=== PATIENT | female | born 1975 | race Two or more races ===

== ENCOUNTER 2016-08-10 08:29 | Emergency (ER) | payer OTHER ==
[2016-08-10 08:37] VITALS: TEMP 98.2; BMI 28.3
[2016-08-10] MEDS ORDERED: MAG HYDROX/AL HYDROX/SIMETH 30 ML UNIT-DOSE CUP PO ONE (09:20)
[2016-08-10] MEDS ORDERED: FAMOTIDINE 20 MG/50 ML IVPB 50 ML IVPB ONE ×2 (09:20→09:26)
[2016-08-10] MEDS ORDERED: ONDANSETRON 4 MG/2 ML VIAL IVPUSH ONE (09:20)
[2016-08-10] MEDS ORDERED: PANTOPRAZOLE SODIUM 40 MG in SODIUM CHLORIDE 100 ML IVPB ONE (09:20)
[2016-08-10] MEDS ORDERED: SUCRALFATE 1 GM/10 ML UNIT DOSE CUPS PO ONE (09:22)
[2016-08-10] MEDS ORDERED: SUCRALFATE 1 GM TABLET (FP) ONE (09:25)
[2016-08-10] MEDS ORDERED: ONDANSETRON 4 MG/2 ML VIAL ONE (09:26)
[2016-08-10] MEDS ORDERED: MAG HYDROX/AL HYDROX/SIMETH 30 ML UNIT-DOSE CUP ONE (09:26)
[2016-08-10] MEDS ORDERED: PANTOPRAZOLE SODIUM 100 ML IVPB ONE (09:26)
--- NOTE | 2016-08-10 09:31 | PDOC ---
History of Present Illness - General Chief Complaint: Pain Stated Complaint: ABD PAIN Time Seen by Provider: 08/10/16 08:45 History Source: Patient Exam Limitations: No Limitations - History of Present Illness Initial Comments: 41 y/o w/no sig PMH presents to ER with c/o of abdominal pain and nausea and vomiting. Abdominal pain is in epigastric region and started yesterday. This morning pain was worsened and was rated as a 10/10 with no radiation. Pain is worsened with food and alleviated with prevacid. Pt has also felt nauseous for the last 5 days but only had 1 episode of emesis yesterday night and 1 episode this morning, both episodes non-bloody and mainly consisting of food. She states that she ate out at a restaurant 5 days ago and has been feeling the nausea since then. She also c/o subjective fevers that started 5 days ago and chills beginning yesterday and occasional headaches over the last 5 days. She has gastritis in the past and felt similar symptoms. She denies any recent travel, sick contacts, chest pain, sob, diarrhea, constipation, blood in stool, dysuria, peripheral swelling. PCP: Marylu Casas Past History - Past Medical History Allergies/Adverse Reactions: Allergies Allergy/AdvReac Type Severity Reaction Status Date / Time No Known Allergies Allergy Verified 08/10/16 08:38 Home Medications: Ambulatory Orders Famotidine [Pepcid] 20 mg PO BID #28 tablet 08/10/16 Omeprazole 20 mg PO DAILY #14 capsule. 08/10/16 Asthma: No Cancer: No Cardiac Disorders: No Diabetes: No HTN: No Seizures: No Thyroid Disease: No - Psycho/Social/Smoking Cessation Hx Suicidal Ideation: No Smoking History: Never smoked Have you smoked in the past 12 months: No Information on smoking cessation initiated: No Hx Alcohol Use: No Drug/Substance Use Hx: No Substance Use Type: Alcohol Hx Substance Use Treatment: No Review of Systems - Review of Systems Able to Perform ROS?: Yes Comments:: GENERAL/CONSTITUTIONAL:+fever and chills. No weakness. HEAD, EYES, EARS, NOSE AND THROAT: No change in vision. No sore throat. CARDIOVASCULAR: No chest pain RESPIRATORY: No cough, wheezing, SOB, or hemoptysis. GASTROINTESTINAL: +nausea, vomiting, epigastric abd pain. No diarrhea or constipation or blood in stool. GENITOURINARY: No dysuria NEUROLOGIC: +headache. No vertigo, loss of consciousness, or change in strength/ sensation. *Physical Exam - Vital Signs Last Vital Signs Temp Pulse Resp BP Pulse Ox 98.2 F 66 18 124/90 99 08/10/16 08:34 08/10/16 08:34 08/10/16 08:34 08/10/16 08:34 08/10/16 08:34 - Physical Exam Comments: GENERAL: Awake, alert, and fully oriented, in no acute distress HEAD: No signs of trauma EYES: EOMI, sclera anicteric, conjunctiva clear ENT: Auricles normal inspection, hearing grossly normal, nares patent. Moist mucosa NECK: Normal ROM, supple LUNGS: Breath sounds equal, clear to auscultation bilaterally. No wheezes, and no crackles HEART: Bradycardic, normal S1 and S2, no murmurs, rubs or gallops ABDOMEN: Soft, RUQ and epigastric tenderness. No guarding, no rebound. No masses. Negative wilson's sign. EXTREMITIES: Normal range of motion, no edema. No cords, erythema, or tenderness NEUROLOGICAL: Cranial nerves II through XII grossly intact. Normal speech, normal gait SKIN: Warm, Dry, normal turgor, no rashes or lesions noted. Heart Score/ECG Review - ECG Intrepretation Comment:: Sinus bradycardia @ 50 bpm QTc [address] segment changes noted. No previous EKGs to compare. ED Treatment Course - LABORATORY CBC & Chemistry Diagram: 08/10/16 09:40 08/10/16 09:40 Medical Decision Making - Medical Decision Making 08/10/16 09:16 Pt likely to have gastritis but will r/o choledocholithiasis, pancreatitis, . Ordered CBCD, CMP, UA, urine , lipase, EKG Ordered zofran 4 mg IV, Carafate 1 g, Pepcid 20 mg IV, Protonix 40 mg IV, mylanta. 08/10/16 10:32 Pt feels much better at this time. Has no complaints currently. Clinical impression at this time is gastritis. Will discharge home to f/u with PCP and to f/u with Dr. Ruiz for GI follow up. Will also send home with pepcid PRN and protonix daily. 08/10/16 11:39 Received call from pharmacy and pantoprazole is not covered but omperazole is. Pt prescribed omeprazole in place of pantoprazole. *DC/Admit/Observation/Transfer Diagnosis at time of Disposition: Gastritis - Discharge Dispostion Disposition: HOME Condition at time of disposition: Good - Prescriptions Prescriptions: Omeprazole 20 mg PO DAILY #14 capsule. Famotidine [Pepcid] 20 mg PO BID #28 tablet - Referrals Referrals: Marylu Casas NP [Primary Care Provider] - Brad Ruiz MD [Staff Physician] - - Patient Instructions Printed Discharge Instructions: DI for Gastritis Additional Instructions: You will need to follow up with your primary care provider, Marylu Casas. You will also need to see a GI doctor. You can see Dr. Ruiz who can further manage your abdominal symptoms. You have also been prescribed pepcid to take as needed for abdominal pain. You have also been prescribed protonix (pantoprazole) to take daily. Please let Dr. Ruiz and your primary care provider know about these medications. If your symptoms worsen, come back to the emergency room.
--- NOTE | 2016-08-10 09:48 | PDOC ---
Attending Attestation - Resident Resident Name: Antonio Dixon - ED Attending Attestation I have performed the following: I have examined & evaluated the patient, The case was reviewed & discussed with the resident, I agree w/resident's findings & plan, Exceptions are as noted - HPI HPI: 08/10/16 09:46 41-year-old female patient with history of gastritis presents with epigastric pain for last several days. Patient reports that she's been feeling nauseous and with pressure epigastric pain with one episode of vomiting yesterday one episode of vomiting today. She states that this is exactly like her gastritis. She does not have any complaints of right upper quadrant pain. She has taken Prevacid - Physicial Exam PE: 08/10/16 09:47 GENERAL: Awake, alert, and fully oriented, in no acute distress. HEAD: No signs of trauma EYES: PERRLA, EOMI, sclera anicteric, conjunctiva clear ENT: Auricles normal inspection, hearing grossly normal, nares patent, oropharynx clear without exudates. NECK: Normal ROM, supple, no lymphadenopathy, JVD, or masses LUNGS: Breath sounds equal, clear to auscultation bilaterally. No wheezes, and no crackles HEART: Regular rate and rhythm, normal S1 and S2, no murmurs, rubs or gallops ABDOMEN: TTP epigastric. negative wilson. no rebound, no guarding. EXTREMITIES: Normal range of motion, no edema. No clubbing or cyanosis. No cords, erythema, or tenderness NEUROLOGICAL: Cranial nerves II through XII grossly intact. Normal speech, normal gait SKIN: Warm, Dry, normal turgor, no rashes or lesions noted. - Medical Decision Making 08/10/16 09:47 Assessment and plan: I suspect patient likely has gastritis. No right upper quadrant pain. I've no concerns for acute Digna or biliary colic at this time. We'll obtain abdominal labs and treat for gastritis and reassess. If the patient's symptoms improved and workup is unremarkable, patient can be discharged with outpatient follow-up. Heart Score/ECG Review #1 ECG reviewed & interpreted by me at: 09:20 08/10/16 09:48 NSR 50, T wave flat III, no std/rock, normal axis, normal intervals, QTC 375 msec
[2016-08-10 09:51] LABS: URINE APPEARANCE CLEAR; URINE BILIRUBIN NEGATIVE (NEGATIVE); URINE BLOOD NEGATIVE (NEGATIVE); URINE COLOR LTYELLOW; URINE GLUCOSE (UA) NEGATIVE (NEGATIVE); URINE KETONE NEGATIVE (NEGATIVE); URINE LEUK ESTERASE NEGATIVE (NEGATIVE); URINE NITRITE NEGATIVE (NEGATIVE); URINE PROTEIN NEGATIVE (NEGATIVE); URINE UROBILINOGEN NEGATIVE E.U./dl (0.2-1.0)
[2016-08-10 10:05] LABS: EOSINOPHIL 5.3 % (0-4.5); MCH 29.6 pg (25.7-33.7); MCHC 33.3 g/dl (32.0-36.0); MEAN CELL VOLUME 88.8 fl (80-96); MEAN PLT VOLUME 9.7 fl (7.5-11.1); NEUTROPHILS 39.7 % (42.8-82.8); PLATELET COUNT 190 K/MM3 (134-434); RDW 13.6 % (11.6-15.6); WHITE BLOOD COUNT 4.8 K/mm3 (4.0-10.0)
[2016-08-10 10:22] LABS: ALBUMIN 3.8 g/dl (3.4-5.0); ALK PHOS 49 U/L (45-117); ANION GAP 7 (8-16); BILIRUBIN,TOTAL 0.3 mg/dL (0.2-1.0); CALCIUM 8.7 mg/dL (8.5-10.1); CO2 25 mmol/L (21-32); CREATININE 0.6 mg/dL (0.55-1.02); GLUCOSE,RANDOM 90 mg/dL (74-106); SGOT/AST 13 U/L (15-37); SGPT/ALT 22 U/L (12-78); TOT PROT 6.9 g/dl (6.4-8.2)
[2016-08-10 11:02] VITALS: BP 129/80; PULSE 82
--- NOTE | 2016-08-10 13:06 | EKG ---
Test Reason : Blood Pressure : / mmHG Vent. Rate : 050 BPM Atrial Rate : 050 BPM P-R Int : 156 ms QRS Dur : 088 ms QT Int : 412 ms P-R-T Axes : 021 019 020 degrees QTc Int : 375 ms SINUS BRADYCARDIA OTHERWISE NORMAL ECG NO PREVIOUS ECGS AVAILABLE Confirmed by ADARSH PAGAN MD ([id number]) on 08/10/2016 1:05:39 PM Referred By: Confirmed By:ADARSH PAGAN MD
== END 2016-08-10 11:02 | disposition home or self-care (01) ==
LOC: JER 08:29
PROC: 3E033GC Introduction of Other Therapeutic Substance into Peripheral Vein, Percutaneous Approach (ICD-10-PCS; principal; 2016-08-10)
DX: K52.9 Noninfective gastroenteritis and colitis, unspecified (principal)
CPT/HCPCS: 36415; 80053; 81003; 83690; 84703; 85025; 93005; 93010; 99282-25

== ENCOUNTER 2020-08-30 15:00 | Inpatient (IN) | payer OTHER ==
[2020-08-30 17:14] LABS: EPI CELLS >36 /uL (0-25.1); HYALINE CASTS 11 /uL (0-3.1); URINE APPEARANCE CLOUDY; URINE BACTERIA 3838 /uL (0-1359); URINE BILIRUBIN NEGATIVE (NEGATIVE); URINE COLOR YELLOW; URINE GLUCOSE (UA) NEGATIVE (NEGATIVE); URINE KETONE NEGATIVE (NEGATIVE); URINE LEUK ESTERASE TRACE (NEGATIVE); URINE NITRITE NEGATIVE (NEGATIVE); URINE PROTEIN TRACE (NEGATIVE); URINE RBC 20 /uL (0-23.9); URINE WBC 91 /uL (0-25.8)
[2020-08-30 17:25] LABS: BASO % 0.4 % (0-2.0); EOS % 1.3 % (0-4.5); HEMATOCRIT 30.5 % (32.4-45.2); HEMOGLOBIN 10.2 GM/dL (10.7-15.3); LYMPH % 31.8 % (8-40); MCH 30.5 pg (25.7-33.7); MCHC 33.4 g/dl (32.0-36.0); MEAN CELL VOLUME 91.2 fl (80-96); MEAN PLT VOLUME 9.8 fl (7.5-11.1); MONO % 8.3 % (3.8-10.2); NEUT % 58.2 % (42.8-82.8); PLATELET COUNT 163 10^3/uL (134-434); RBC 3.34 M/mm3 (3.60-5.2); WHITE BLOOD COUNT 5.8 K/mm3 (4.0-10.0)
[2020-08-30 17:46] LABS: CALCIUM 9.2 mg/dL (8.5-10.1)
[2020-08-30 17:47] LABS: ALBUMIN 2.8 g/dl (3.4-5.0); BLOOD UREA NITROGEN 6.2 mg/dL (7-18)
[2020-08-30 17:50] LABS: CREATININE 0.3 mg/dL (0.55-1.3)
[2020-08-30 17:51] LABS: BILIRUBIN,TOTAL 0.4 mg/dL (0.2-1); TOT PROT 5.9 g/dl (6.4-8.2)
[2020-08-30] MEDS ORDERED: CITRIC ACID/SODIUM CITRATE 30 ML UNIT-DOSE CUP PO ONE (18:38)
[2020-08-30] MEDS ORDERED: ELECTROLYTE-148 SOLN 500 ML IV ONE (18:38)
[2020-08-30 19:02] VITALS: BMI 31.4
[2020-08-30 19:32] LABS: INR 0.92 (0.83-1.09); PROTHROMBIN TIME (PATIENT) 11.2 SEC (9.7-13.0)
[2020-08-30] MEDS ORDERED: morphine SULFATE/PF 0.5 MG/ML (2cc Syringe - QUVA) ONE (19:34)
[2020-08-30 19:35] LABS: ACTIVATED PTT 27.2 SECONDS (25.2-36.5)
[2020-08-30] MEDS ORDERED: SODIUM CHLORIDE 0.9% P/F 10 ML VIAL IJ ONE (19:37)
[2020-08-30] MEDS ORDERED: ONDANSETRON 4 MG/2 ML VIAL ONE (19:37)
[2020-08-30] MEDS ORDERED: OXYTOCIN 10 UNITS/ML VIAL ONE (19:37)
[2020-08-30] MEDS ORDERED: KETOROLAC TROMETHAMINE 30 MG/1 ML VIAL ONE (19:37)
[2020-08-30] MEDS ORDERED: ceFAZolin SODIUM 1 GM VIAL ONE (19:37)
[2020-08-30] MEDS ORDERED: morphine SULFATE/PF 0.5 MG/ML (2cc Syringe - QUVA) EP ONE (20:02)
[2020-08-30] MEDS ORDERED: ePHEDrine SULFATE 50 MG/1 ML AMPULE ONE (20:10)
[2020-08-30] MEDS ORDERED: ONDANSETRON 4 MG/2 ML VIAL IVPUSH PRN ×2 (21:17)
[2020-08-30] MEDS ORDERED: ACETAMINOPHEN 1000 MG/100 ML VIAL (NON FORMULARY) IVPB ONE (21:19)
[2020-08-30] MEDS: OXYTOCIN 20 UNITS in 0.9% NS 20 UNIT/1,000 ML INFUS.BAG IV SCH (21:47)
[2020-08-30] MEDS ORDERED: OXYTOCIN 20 UNITS in 0.9% NS 20 UNIT/1,000 ML INFUS.BAG IV ONE (21:57)
[2020-08-30] MEDS ORDERED: ACETAMINOPHEN INJECTION 100 ML IVPB ONE (21:57)
[2020-08-31] MEDS: IBUPROFEN 800 MG/8 ML IJ IVPB PRN ×2 (02:38→10:33)
[2020-08-31] MEDS ORDERED: ceFAZolin 2 GRAM PREMIX BAG IVPB ONE (05:00)
[2020-08-31 08:49] LABS: BASO % 0.4 % (0-2.0); EOS % 0.9 % (0-4.5); HEMATOCRIT 24.7 % (32.4-45.2); LYMPH % 16.7 % (8-40); MCH 30.2 pg (25.7-33.7); MCHC 32.6 g/dl (32.0-36.0); MEAN CELL VOLUME 92.7 fl (80-96); MEAN PLT VOLUME 10.2 fl (7.5-11.1); MONO % 7.3 % (3.8-10.2); NEUT % 74.7 % (42.8-82.8); PLATELET COUNT 146 10^3/uL (134-434); RBC 2.66 M/mm3 (3.60-5.2); RDW 14.1 % (11.6-15.6); WHITE BLOOD COUNT 6.8 K/mm3 (4.0-10.0)
[2020-08-31] MEDS: IBUPROFEN 600 MG TABLET (FP) PO PRN ×2 (15:28→23:59)
[2020-08-31] MEDS: SIMETHICONE 80 MG TAB.CHEW (FP) PO PRN ×2 (15:28→22:08)
[2020-08-31] MEDS: oxyCODONE HCL 5 MG TABLET PO PRN ×2 (15:29→19:58)
[2020-08-31] MEDS ORDERED: BISACODYL 10 MG SUPP.RECT PR ONE (17:45)
[2020-08-31] MEDS: ACETAMINOPHEN 325 MG TABLET (FP) PO PRN (19:59)
[2020-08-31] MEDS ORDERED: BISACODYL 10 MG SUPP.RECT RC PRN (20:46)
[2020-09-01] MEDS: IBUPROFEN 600 MG TABLET (FP) PO PRN ×3 (05:45→18:49)
[2020-09-01] MEDS: ACETAMINOPHEN 325 MG TABLET (FP) PO PRN ×5 (05:45→23:11)
[2020-09-01] MEDS: SIMETHICONE 80 MG TAB.CHEW (FP) PO PRN ×3 (11:59→23:08)
[2020-09-01] MEDS: LACTATED RINGERS SOLUTION 1,000 ML IV SCH ×2 (19:45→19:46)
[2020-09-01] MEDS: ELECTROLYTE-148 SOLN 1,000 ML IV SCH ×2 (19:45→19:46)
[2020-09-01] MEDS: OXYTOCIN 20 UNITS in 0.9% NS 20 UNIT/1,000 ML INFUS.BAG IV SCH (19:46)
[2020-09-01] MEDS: oxyCODONE HCL 5 MG TABLET PO PRN (23:10)
[2020-09-02] MEDS: oxyCODONE HCL 5 MG TABLET PO PRN (05:37)
[2020-09-02] MEDS: ACETAMINOPHEN 325 MG TABLET (FP) PO PRN ×4 (05:38→22:11)
[2020-09-02] MEDS: IBUPROFEN 600 MG TABLET (FP) PO PRN ×4 (05:38→22:11)
[2020-09-02] MEDS: SIMETHICONE 80 MG TAB.CHEW (FP) PO PRN ×4 (05:39→22:11)
[2020-09-02 08:52] LABS: BASO % 0.5 % (0-2.0); EOS % 3.3 % (0-4.5); LYMPH % 22.7 % (8-40); MCH 30.7 pg (25.7-33.7); MCHC 33.2 g/dl (32.0-36.0); MEAN CELL VOLUME 92.5 fl (80-96); MEAN PLT VOLUME 9.5 fl (7.5-11.1); MONO % 7.4 % (3.8-10.2); NEUT % 66.1 % (42.8-82.8); PLATELET COUNT 169 10^3/uL (134-434); RDW 14.3 % (11.6-15.6)
[2020-09-02] MEDS: LABETALOL HCL 200 MG TABLET (FP) PO SCH ×2 (09:23→22:11)
[2020-09-03] MEDS: SIMETHICONE 80 MG TAB.CHEW (FP) PO PRN ×2 (04:08→10:05)
[2020-09-03] MEDS: ACETAMINOPHEN 325 MG TABLET (FP) PO PRN ×2 (04:09→10:05)
[2020-09-03] MEDS: IBUPROFEN 600 MG TABLET (FP) PO PRN ×2 (04:09→10:06)
[2020-09-03 08:32] VITALS: BP 139/68; PULSE 73; TEMP 98
[2020-09-03] MEDS: LABETALOL HCL 200 MG TABLET (FP) PO SCH (10:07)
== END 2020-09-03 11:50 | disposition home or self-care (01) | DRG 540 ==
LOC: JDEL 15:00 → JLDR 18:30 → J3W 22:29
PROVIDERS: ADMIT Student in an Organized Health Care Education/Training Program; ATTEND Student in an Organized Health Care Education/Training Program
PROC: 10D00Z1 Extraction of Products of Conception, Low, Open Approach (ICD-10-PCS; principal; 2020-08-30)
PROC: 0UT70ZZ Resection of Bilateral Fallopian Tubes, Open Approach (ICD-10-PCS; 2020-08-30)
DX: O34.211 Maternal care for low transverse scar from previous cesarean delivery (principal); O13.4 Gestational [pregnancy-induced] hypertension without significant proteinuria, complicating childbirth; Z3A.38 38 weeks gestation of pregnancy; Z37.0 Single live birth; Z30.2 Encounter for sterilization; O99.02 Anemia complicating childbirth; D64.9 Anemia, unspecified
CPT/HCPCS: 36415; 80053; 81003; 82570; 84156; 85025; 85610; 85730; 86780; 86850; 86900; 86901; 88302-TC; 88307-TC; C9803; J0131; U0003; U0005

== ENCOUNTER 2023-04-30 09:47 | Emergency (ER) | payer OTHER ==
[2023-04-30 09:55] VITALS: BP 127/82; PULSE 63; RESP 18; TEMP 98.9; BMI 28.1
[2023-04-30] MEDS ORDERED: LIDOCAINE 4% PATCH TP ONE (10:15)
[2023-04-30] MEDS ORDERED: diazePAM 2 MG TABLET ONE (10:15)
[2023-04-30] MEDS: diazePAM 2 MG TABLET PO ONE (10:27)
[2023-04-30] MEDS: LIDOCAINE 4% PATCH TP ONE (10:27)
[2023-04-30 10:39] LABS: PH,URINE 6.5 (5.0-8.0); URINE APPEARANCE CLEAR; URINE BILIRUBIN NEGATIVE (NEGATIVE); URINE COLOR YELLOW; URINE GLUCOSE (UA) NEGATIVE (NEGATIVE); URINE KETONE NEGATIVE (NEGATIVE); URINE LEUK ESTERASE NEGATIVE (NEGATIVE); URINE NITRITE NEGATIVE (NEGATIVE); URINE PROTEIN NEGATIVE (NEGATIVE); URINE UROBILINOGEN 0.2 mg/dL (0.2-1.0)
[2023-04-30 11:30] LABS: HCG,QUALITATIVE URINE NEGATIVE
[2023-04-30] MEDS ORDERED: KETOROLAC TROMETHAMINE 15 MG/ML VIAL ONE (13:09)
[2023-04-30] MEDS: KETOROLAC TROMETHAMINE 15 MG/ML VIAL IM ONE (13:13)
[2023-04-30] MEDS ORDERED: LIDOCAINE PATCH REMOVAL MC ONE (22:00)
== END 2023-04-30 13:34 | disposition home or self-care (01) ==
LOC: JER 09:47
PROC: 3E0233Z Introduction of Anti-inflammatory into Muscle, Percutaneous Approach (ICD-10-PCS; principal; 2023-04-30)
DX: M54.9 Dorsalgia, unspecified (principal); R10.30 Lower abdominal pain, unspecified
CPT/HCPCS: 72128-TC; 72131-TC; 81003; 84703; 87086; 99284-25